=== PATIENT | male | born 1965 | race Caucasian/White ===

== ENCOUNTER 2019-05-06 12:47 | Observation (INO) ==
--- NOTE | 2019-05-06 14:50 | EKG Report ---
Test Performed on : 05/06/2019 1:21:55 PM Test Reason : syncope Blood Pressure : / mmHG Vent. Rate : 070 BPM Atrial Rate : 070 BPM P-R Int : 144 ms QRS Dur : 094 ms QT Int : 392 ms P-R-T Axes : 022 025 033 degrees QTc Int : 423 ms Normal sinus rhythm. Possible Left atrial enlargement Borderline ECG No previous ECGs available Unconfirmed Result
[2019-05-06 14:59] LABS: BASO# 0.04 X1000 (0.0-0.2); BASO% 0.5 % (0.0-0.8); EOS# 0.08 X1000 (0.0-0.7); EOS% 0.9 % (0.0-10.0); HEMOGLOBIN 14.6 g/dL (14.0-18.0); IMM GRAN# 0.02 X1000 (0.0-0.04); IMM GRAN% 0.2 % (0.0-0.5); LYMPH# 0.84 X1000 (1.2-3.4); LYMPH% 9.7 % (20.5-51.1); MCH 31.7 PG (27-31); MCHC 33.2 g/dL (33-37); MCV 95.7 FL (81-99); MONO# 0.94 X1000 (0.11-0.59); MONO% 10.8 % (1.7-9.3); MPV 8.6 FL (7.4-10.4); NEUT# 6.76 X1000 (1.4-6.5); NEUT% 77.9 % (42.2-75.2); PLT 230 X1000 (130-400); WBC 8.68 X1000 (4.8-10.8)
[2019-05-06 15:28] LABS: AGAP 12; ALB/GLOB RATIO 1.3; ALKALINE PHOSPHATASE 88 U/L (32-122); BUN 20 mg/dL (8-22); CALCIUM 8.9 mg/dL (8.8-10.2); CHLORIDE 100 mmol/L (98-107); CK PROFILE 62 U/L (24-204); COSMO 280; CREATININE 1.1 mg/dL (0.7-1.2); ESTIMATED GFR > 60; GLUCOSE 100 mg/dL (70-104); GOT 14 U/L (10-34); GPT 11 U/L (10-44); POTASSIUM 4.3 mmol/L (3.5-5.1); SODIUM 139 mmol/L (136-145); TCO2 27 mmol/L (25-35); TOTAL BILIRUBIN 0.54 mg/dL (0.20-1.00); TOTAL PROTEIN 7.2 g/dL (6.3-8.3)
--- NOTE | 2019-05-06 16:02 | Diag Imaging Result Doc PS360 ---
EXAM: CT HEAD W/O CONTRAST INDICATION: apnea TECHNIQUE: This exam was performed using automated exposure control, adjustment of mA or kV according to patient size, and/or use of iterative reconstruction technique. COMPARISON: None. FINDINGS: There is no definite acute infarct given the limited sensitivity of CT versus MRI. There is no discrete intracranial mass, mass effect, or intracranial hemorrhage. The surrounding soft tissues and bony structures are essentially unremarkable. IMPRESSION: No evidence of acute intracranial pathology. Electronically signed by Karthik Joe 05/06/2019 3:59 PM
--- NOTE | 2019-05-06 16:13 | Diag Imaging Result Doc PS360 ---
EXAM: CHEST-2 VIEWS INDICATION: syncope TECHNIQUE: 2 views COMPARISON: None. FINDINGS: There are a few calcified granulomata in the right mid and upper lung zone. There is linear density at the left lung base suggesting mild subsegmental atelectasis. The lungs are grossly clear, otherwise. There is no discrete pleural fluid collection or pneumothorax. The cardiomediastinal silhouette and central vasculature are grossly unremarkable. IMPRESSION: Suggestion of mild left basilar subsegmental atelectasis. No definite acute chest pathology, otherwise. Electronically signed by Karthik Joe 05/06/2019 4:11 PM
[2019-05-06] MEDS ORDERED: ZOFRAN IV PRN (17:30)
[2019-05-06] MEDS ORDERED: TYLENOL PO PRN (17:30)
--- NOTE | 2019-05-06 17:41 | PROVIDER DOCUMENTATION ---
This chart was entered by Ivelisse Anderson Scribe, acting as scribe for Helen Clark MD. HPI-General Adult - General Chief Complaint: Syncope Stated Complaint: SYNCOPE Time Seen by Provider: 05/06/19 13:27 Source: family (sister) Allergies/Adverse Reactions: Patient Allergies Allergy/AdvReac Type Severity Reaction Status Date / Time No Known Allergies Allergy Verified 10/26/12 14:53 Home Medications: Home Medication List Medication Instructions Recorded Confirmed Last Taken Type Besifloxacin HCl [Besivance] 5 ml OP 4XDAY 10/26/12 10/26/12 10/26/12 09:00 History Cyanocobalamin (Vitamin B-12) 1,000 mcg PO DAILY 10/26/12 10/26/12 10/25/12 20:00 History [B-12] Diphenhydramine [Benadryl] 25 mg PO QHS 10/26/12 10/26/12 10/25/12 19:00 History Ergocalciferol (Vitamin D2) 5,000 unit PO DAILY 10/26/12 10/26/12 10/25/12 20:00 History [Vitamin D] Levothyroxine [Synthroid] 50 microgm PO DAILY 10/26/12 10/26/12 10/25/12 20:00 History Olanzapine [Zyprexa] 2.5 mg PO QHS 10/26/12 10/26/12 10/25/12 20:00 History - History of Present Illness -Gen Adult Nature of Presenting Problems: 54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 Pt has Down Syndrome and sister is at bedside and reports pt was eating lunch, started burping a lot, slumped over on table, tongue turned blue and she gave Heimlech and pt aroused. Sister denies cough, gagging, vomiting or loss of urine for pt. Pt is A&Ox3 upon exam. Onset/Duration: reports: just prior to arrival Timing: reports: resolved prior to arrival Context/Activities at Onset: reports: eating Modifying Factors: improves with: nothing Associated Symptoms: reports: syncope Similar Symptoms Previously?: No Recently seen or treated by another doctor?: No Review of Systems - Adult - REVIEW OF SYSTEMS - ADULT ROS:: ROS per family (sister) Constitutional: reports: see HPI. denies: chills, fever, fatique Eyes: reports: no symptoms reported Ears, Nose, Mouth & Throat: reports: no symptoms reported Cardiovascular: reports: no symptoms reported Respiratory: reports: see HPI. denies: cough Gastrointestinal: reports: no symptoms reported Genitourinary: reports: no symptoms reported Musculoskeletal: reports: no symptoms reported Integumentary: reports: no symptoms reported Neurological: reports: see HPI, syncope Psychiatric: reports: no symptoms reported Endocrine: reports: no symptoms reported Hematologic/Lymphatic: reports: no symptoms reported Allergic/Immunologic: reports: no symptoms reported All Other Systems: Reviewed and Negative Past History - Adult - PAST MEDICAL HISTORY-ADULT Review of Records: reports: Nursing Assessment Review, Medications Reviewed, Social history reviewed & non-contributory. Major Childhood Illnesses: reports: denies history Cardiovascular: reports: denies history Respiratory: reports: denies history Gastrointestinal: reports: denies history Obstetrical/Gynecological: reports: denies history Genitourinary: reports: denies history Musculoskeletal: reports: denies history Neurological: reports: denies history Endocrine/Immune: reports: denies history Other Conditions: reports: denies history - IMMUNIZATION STATUS Childhood Immunizations: See Nurse Assessment Flu Vaccine: See Nurse Assessment - FAMILY HISTORY Family History: reviewed, not pertinent - SOCIAL HISTORY Smoking: denies Physical Exam-General - PHYSICAL EXAM-ADULT Initial Vital Signs Reviewed: Yes - CONSTITUTIONAL General Appearance: appears well, alert, no apparent distress. negative: anxi ous, combative - EYES Eyes: PERRL/EOMI, pink conjunctivae - HEAD, EARS, NOSE, MOUTH & THROAT HENMT: normocephalic/atraumatic, moist mucous membranes. negative: angioedema - NECK Neck: non-tender, full range of motion, normal inspection - RESPIRATORY Respiratory: chest non-tender, lungs clear, normal breath sounds. negative: rhonchi - CARDIOVASCULAR Cardiovascular: normal peripheral pulses, regular rate, rhythm, no edema. negative: bradycardia, tachycardia - GASTROINTESTINAL (ABDOMEN) Abdominal Exam: normal bowel sounds, non tender, soft. negative: rebound - MUSCULOSKELETAL Extremity: normal range of motion, normal inspection, normal capillary refill - SKIN Integumentary: normal turgor. negative: diaphoresis, jaundice - PSYCHIATRIC Psych/Mental Status: normal mood/affect, oriented x 3. negative: anxious, dis heveled Progress - PLAN OF CARE/RESULTS Progress/Plan/Lab Results: Vital Signs - 8 hr 05/06/19 12:52 Temperature 98.1 F Pulse Rate 79 Respiratory Rate 18 Blood Pressure 96/63 O2 Sat by Pulse Oximetry 95 Orders Category Date Time Status CHEST-2 VIEWS [RAD] Stat Exams 05/06/19 14:[address] HEAD W/O CONTRAST [CT] Stat Exams 05/06/19 14:19 Ordered CBC WITH ELECTRONIC DIFF [HEME] Stat Lab 05/06/19 14:45 Results CK PROFILE [SP CHEM] Stat Lab 05/06/19 14:45 Received COMPREHENSIVE METABOLIC PANEL [CHEM] Stat Lab 05/06/19 14:45 Received TROPONIN T Stat Lab 05/06/19 14:45 Received EKG [EKG] Stat Ther 05/06/19 14:19 Draft Result Diagrams: 05/06/19 14:45 05/06/19 14:45 - EKG 1 Time of EKG reading by physician:: 13:21 EKG Read and Signed by:: Helen Clark EKG Interpretation (*Must complete 3 of following elements*): Abnormal (borderline;possible left atrial enlargement) Rate: 70 Rhythm: NSR QRS: normal ST Wave: normal - CT/MRI 1 CT Study: Head Impression: See EMR Report (IMPRESSION: No evidence of acute intracranial pathology. Electronically signed by Karthik Joe 05/06/2019 3:59 PM) - CONSULTS/PCP/HOSPITALIST Notification #1 *Consult/PCP/Hospitalist*: d/w Xiomy, admit to Dr Leach Time Discussed: 16:45 Consult Disposition: Admit Departure - Departure Date of Disposition Decision: 05/06/19 Time of Disposition Decision: 16:40 DIAGNOSIS: Syncope and collapse, Apnea for greater than 15 seconds Disposition: ADMITTED INPATIENT 09 Certified Medical Emergency: Emergent Condition: Stable - Critical Care Note This patient required my direct & personal management of CC.: No Attestation - Physician/ RJ Attestation Patient care was provided by Advanced Practice Provider:: No The physician spent face to face time with patient:: Yes Advanced Practice Provider documentation review:: Supervising physician onsite and consulted in the evaluation and care of this patient. The physician did have a face to face encounter with the patient. This chart was documented by the indicated scribe, (Ivelisse Anderson Scribe) and accurately reflects the services I performed and decisions made by me, Helen Clark MD, as attested by the provider's signature.
--- NOTE | 2019-05-06 18:27 | HISTORY AND PHYSICAL ---
PRIMARY CARE PHYSICIAN: Eliz LARSEN. CHIEF COMPLAINT: Syncopal episode while eating lunch, slumped over the table, his tongue turn blue, was given the Heimlich by his niece, and aroused but no release of any food was noted at that time. HISTORY OF PRESENTING ILLNESS: This is a 54-year-old male with Down syndrome who presents to [facility] after he had an incident while eating lunch where he began burping a lot and then slumped over the table. His tongue turn blue. He became unresponsive. His niece was at the table with him and began the Heimlich. She states that no coughing, gagging, vomiting, or release of any food was noted with the Heimlich maneuver, but he did arouse and was alert and oriented when he arrived to the emergency room. His workup was essentially negative. Vital signs were stable. He is alert and oriented and answers questions appropriately at this time, but we will admit him for observation for further evaluation and treatment. PAST MEDICAL HISTORY: Down syndrome, mongoloid, hypothyroidism, and hypoglycemia. PAST SURGICAL HISTORY: Hernia repair. FAMILY HISTORY: Reviewed and noncontributory. SOCIAL HISTORY: Currently lives with family. Denies any tobacco, alcohol, or illicit drug use. ALLERGIES: No known drug allergies. HOME MEDICATIONS: Current list will need to be obtained, reconciled, reviewed, and restarted as appropriate. Will place an order for nursing to update and confirm home medications. LABORATORY DATA: Showed a white blood cell count of 8.68, hemoglobin 14.6, hematocrit 44, platelets 230,000. Sodium 139, potassium 4.3, chloride 100, CO2 27, BUN of 20, creatinine 1.1, glucose of 100. Cardiac enzymes were negative. CT of the head showed no evidence of acute intracranial pathology. Chest x-ray showed suggestion of a mild left basilar subsegmental atelectasis but no definite acute chest pathology otherwise. REVIEW OF SYSTEMS: He denies any fever, chills, blurred vision, dizziness, chest pain, coughing, shortness of breath. Denies any abdominal pain, constipation, diarrhea, burning or hurting with urination. He does state that his throat is mildly sore. PHYSICAL EXAMINATION: VITAL SIGNS: On arrival he had a temperature of 98.1 degrees, pulse 79, respirations 18, blood pressure 96/63, currently up to 119/80, saturating 97% on room air. GENERAL: This is a 54-year-old male who is sitting up in the bed and answers questions appropriately. HENT: Normocephalic, atraumatic. Normal ENT inspection. Oropharynx and nares are clear. EYES: Pupils are equal, round, reactive to light and accommodation. Extraocular movements are intact. NECK: Normal inspection. Normal range of motion. LUNGS: Clear to auscultation bilaterally with equal lung expansion and chest wall movement. HEART: With regular rate and rhythm. No murmurs, rubs, or gallops. ABDOMEN: Soft, nontender, nondistended. Bowel sounds are present x4 quadrants. MUSCULOSKELETAL: He had 5/5 strength x4 extremities. NEUROLOGICAL: The cranial nerves 2-12 appear grossly intact. ASSESSMENT: 1. Syncope. 2. Hypothyroidism, history of. 3. Down syndrome, history of, aware. PLAN: He will be admitted to the medical unit, placed on a regular diet, telemetry. We will update and confirm home medications. We will do a carotid Doppler and an echocardiogram in the a.m. and further orders after seen by attending. Dictated by SUZIE Perez for Niles Leach MD cc: SUZIE Perez MD Natalie McCay, CRNP
[2019-05-06] MEDS ORDERED: NS 1,000 ML IV SCH (19:45)
--- NOTE | 2019-05-06 20:30 | HISTORY AND PHYSICAL ---
I have seen and examined Mr. Saenz today. The sister and brother were at the bedside at the time of the encounter. Mr. Saenz is a 54-year-old Down syndrome patient, with history of hypothyroidism, who was in a restaurant this afternoon with family members. After taking a few bites of his food, he just brushed it aside and said he did not like it. When the family members inquired if he did not want the food, he just said no. They asked him if he wanted something else; he said no. At that point, they saw that he just became pale and he was unresponsive. His head was slumping over. The family member tried to shake him and get his attention, but he would not respond verbally, but he had pulse, I understand. Initially, they thought he might have been choking, so they tried the Heimlich procedure on him, but no food came out. I understand the tongue got blue. He became remarkably pale. He did not lose any sphincter. They said the incident lasted maybe a minute or two, and then he started gaining his consciousness. He started saying yes. He started saying "mm mmm mm". He was brought into the emergency room where he was evaluated. Initially, his blood pressure seems to have been 96/63 when he was first checked. According to this family member that I spoke to on the phone, they tried checking his blood pressure with an automated machine and it would just read error, error, error. His physical exam, for the most part, is unremarkable at this point. Chest x-ray shows mild left basilar subsegmental atelectasis. A head CT scan showed no evidence of acute disease. EKG on admission showed normal sinus rhythm, normal axis, no ST-segment or T- waves abnormality. QT interval is within normal range. 1. Syncopal episode, unclear etiology. It appears that this is neurally mediated syncope. However, possible cardiac etiology also would need to be ruled out. Initial electrocardiogram and initial troponin are negative. We are going to repeat electrocardiogram in the morning and get an echocardiogram, and get Cardiology to evaluate him. The patient will also get orthostatic vitals done. Initially, his blood pressure seems to have been on the lower side, but that has improved. We will get his orthostatic vitals and go from there. 2. History of hypothyroidism. Patient is on Synthroid. We started him back. 3. Down syndrome. Noted. Please refer to the details of the History and Physical which has been dictated by the nurse practitioner in the chart. cc: Niles Leach MD MTDD
[2019-05-06] MEDS ORDERED: ZYPREXA PO SCH (21:00)
[2019-05-07] MEDS: SYNTHROID PO SCH ×2 (05:09→07:34)
--- NOTE | 2019-05-07 08:24 | EKG Report ---
Test Performed on : 05/07/2019 08:18:27 AM Test Reason : syncope Blood Pressure : / mmHG Vent. Rate : 064 BPM Atrial Rate : 064 BPM P-R Int : 148 ms QRS Dur : 092 ms QT Int : 404 ms P-R-T Axes : -06 035 034 degrees QTc Int : 416 ms Normal sinus rhythm. Possible Lateral infarct , age undetermined Abnormal ECG When compared with ECG of 06-MAY-2019 13:21, (Unconfirmed) No significant change was found Confirmed by Santiago DELGADO, P.J.M ([id number]) on 05/08/2019 7:55:58 PM
[2019-05-07] MEDS ORDERED: VITAMIN D PO SCH (09:00)
[2019-05-07] MEDS ORDERED: VITAMIN B-12 PO SCH (09:00)
[2019-05-07 16:11] VITALS: BP 121/65
--- NOTE | 2019-05-07 20:05 | ECHO REPORT ---
ORDER DATE: 05/07/2019 INDICATION: Syncope. FINDINGS: 1. The right atrium appears mildly enlarged at 4.3 cm. 2. Trace tricuspid regurgitation. RV systolic pressure of 35. 3. Normal RV size, with possible mild reduction in RV systolic function. Somewhat difficult views of the right ventricle. 4. Mild pulmonic insufficiency. 5. Normal left atrial size, dimension of 3.2 cm. 6. No mitral valve prolapse. Mild mitral regurgitation. No evidence of mitral stenosis. 7. Normal LV size, end-diastolic dimension of 4.6. Normal wall thicknesses with a posterior and interventricular septal wall thickness of 0.8 cm each. Normal LV systolic function. Estimated EF of 60% with normal wall motion. 8. The aortic valve opens well. It is trileaflet. No evidence of stenosis or insufficiency. 9. The aorta appears normal in visualized segments. 10. No pericardial effusion seen. cc: MD Cyndy Cruz CRNP
--- NOTE | 2019-05-07 20:44 | CARDIOLOGY CONSULTATION ---
DATE: 05/07/2019 CONSULTATION REQUESTED BY: Hospitalist service. THE REASON FOR CONSULTATION: A question of syncope. HISTORY: Mr. Saenz is a 54-year-old, male who suffers from Down syndrome. He was brought to the emergency room by emergency medical service yesterday at about 2 p.m. after he suffered an episode of loss of consciousness as he was sitting at the table, associated with a choking sensation, question of real choking with food. Family administered the Heimlich maneuver, but he became unresponsive and eventually after that he regained consciousness. He is really nonverbal and he basically has not had any further complaints since he will go to the emergency room. His brother is at the bedside and he states that this has never happened before. He normally follows with Dr. Marylin Henry/SUZIE Rodarte in [place]. He has been generally enjoying good health for most part. PAST MEDICAL HISTORY: Besides the diagnosis of Down syndrome, he has hypothyroidism and history of esophageal stricture. He has had esophageal dilatation in the past. PAST SURGICAL HISTORY: Hernia repair. SOCIAL HISTORY: He lives at home with family. He is not a smoker or drinker. He is nonverbal. FAMILY HISTORY: Noncontributory. HOME MEDICATIONS: Included cyanocobalamin, vitamin B12, vitamin D2, levothyroxine, and Zyprexa 2.5 mg at bedtime. He does not have allergies. REVIEW OF SYSTEMS: Basically, they have been no changes in his health as far as the family can tell. His father at the age of 95. Mother at the age of 87. There was no heart disease in the family. There are 3 siblings, 2 older brothers. They are basically healthy. PHYSICAL EXAMINATION: Vital signs: Blood pressure 99/65, temperature 97.7 degrees, pulse 61, respirations 18. General: The patient is awake, alert, oriented, in no distress. HEENT: Unremarkable. There are no orthostatic changes in blood pressure. His HEENT, other than the usual features of Down syndrome, is unremarkable. Chest: Clear to auscultation and percussion. Heart: Sounds are regular rhythmic. No gallop or murmur. Abdomen: Nontender. Extremities: Show good pulses. No peripheral edema. Neurological: Nonfocal. Moves 4 extremities. The patient is very pleasant and allows examination without difficulty. BLOOD WORK: Sodium 139, potassium 4.3, BUN 20, creatinine 1.1. Troponin less than 0.010. ProBNP 81 pg/mL. Cholesterol panel: Total cholesterol 161, LDL 99, HDL 58, triglycerides 52. IMAGING: His chest x-ray from yesterday showed suggestion of mild left basilar subsegmental atelectasis. His 12 lead EKG from yesterday at 1:21 p.m. is basically unremarkable and so is the EKG done this morning at 8:13 in the morning does not show anything particularly remarkable. A head CT showed no evidence of intracranial pathology. A 2D echocardiogram has already been done today. It shows normal LV function. No evidence of any significant valvular abnormality. IMPRESSION: 1. Patient who suffered a brief episode of loss of consciousness, question of cardiac syncope vasovagally mediated (patient possibly choked with food) versus seizure. 2. Patient with Down syndrome. No congenital cardiac disease. 3. History of esophageal stricture in the past. 4. Hypothyroidism. RECOMMENDATION: At this time, I would suggest to get a neurology opinion and from my viewpoint, the patient may be discharged. There is no evidence of organic heart disease on him. Upon discharge it may be a good idea to refer the patient to follow up with his exerciser horse to make sure that he does not have any organic recurrent esophageal stricture. Thank you for opportunity to participate in his evaluation. cc: Luke Snowden MD [facility]
--- NOTE | 2019-05-07 21:20 | CONSULTATION ---
DATE OF CONSULTATION: 05/07/2019 REASON FOR CONSULT: Syncope versus seizure. HISTORY OF PRESENT ILLNESS: This is a 54-year-old male with Down syndrome and hypothyroidism. He was admitted yesterday after an event raising the question of syncope versus seizure. History is from the patient's attentive niece, who was at the bedside. Yesterday, he was sitting at the table eating food with his family. He took some bites and then pushed his food away and did not want it. Very shortly thereafter, he became pale and began to slump forward. The niece caught him and pushed him back up, but he continued to be poorly responsive. His tongue turned blue. His eyes seemed to be closed. He was not verbally responding. They tried the Heimlich maneuver, thinking perhaps he was choking, and although no food came out, he did apparently become more responsive. The event lasted a few minutes and he began to respond more readily. There was not loss of bowel or bladder control, no shaking. They were able to move him into the wheelchair and get him into the car to bring him for evaluation. Of note, they attempted to use the home blood pressure automated machine, and it would only read error each time they attempted to take his blood pressure. Initial blood pressure recorded here was 96/63. His blood sugar was checked and was okay. Niece reports an event in the past of syncope that was related to hypoglycemia. He has not complained of anything outright, although his speech and communication are limited. PAST MEDICAL HISTORY: 1. Down syndrome. 2. Hypothyroidism. 3. Hypoglycemia. 4. Hernia repair. FAMILY HISTORY: No strokes or seizures. SOCIAL HISTORY: He lives with his brother. His niece, who is at the bedside, takes care of him during the week. No tobacco, alcohol, or illicits. ALLERGIES: No known drug allergies listed. CURRENT MEDICATIONS: Reviewed in the chart, and include Synthroid, Zyprexa 2.5 p.o. at bedtime. REVIEW OF SYSTEMS: Balance of 12 conducted and otherwise negative except for that detailed in the HPI. He does point to his throat, possibly indicating some discomfort there. Niece says he does that often. PHYSICAL EXAMINATION: Vital signs are afebrile, blood pressure 105/62, initial was 96/63, pulse 60, respirations 16, 98% on room air. Mr. Saenz sitting up in the bed, feeding himself lunch. He is awake and alert. He follows simple commands. He is reasonably attentive. He is cooperative. He answers some questions appropriately. Pupils are equal, round, and reactive to bright light. Gaze is conjugate. Extraocular movements appear to be full. Face appears symmetric with equal activation. Palate elevates symmetrically. Tongue is midline. He can hear. Tone appears equal in the limbs. There is no obvious asymmetry with regard to power in the limbs. Reflexes are absent at the ankles, 1+ at the knees and wrists bilaterally. No clonus. Plantar response appears to be downgoing. He is able to perform [id number] bilaterally and that seems symmetric. He is seen to feed himself and to drink without much difficulty. DIAGNOSTICS: Head CT noncontrast: No acute findings. Normal white count and chemistry panel. ASSESSMENT AND PLAN: Favor syncope over seizure. The etiology is uncertain. However, based on the history of staring events in the distant past, will go ahead and order a routine EEG to evaluate for increased propensity to seizure. I agree with telemetry monitoring and further workup per primary team. Thank you for this consultation. cc: Brionna Harris MD
--- NOTE | 2019-05-07 22:04 | Carotid Study ---
DATE: 05/07/2019 REFERRING PRACTITIONER: SUZIE Perez. READING PHYSICIAN: Brandon Wood MD. SHAREPOINT DEVELOPER: Froy. INDICATION: Syncope and TIA. FINDINGS: There were no atherosclerotic plaques seen in either carotid system. There is intervertebral flow bilaterally. There is some mild elevation of velocity in the right proximal internal carotid artery, but without any turbulent flow or associated plaque. Percent stenosis should be considered 0-30% bilaterally. INTERPRETATION: Unremarkable carotid imaging study. cc: MD Cyndy Owens CRNP
--- NOTE | 2019-05-08 04:53 | EEG REPORT ---
DATE: 05/07/2019 DATE OF SERVICE: 05/07/2019 REFERRING PHYSICIAN: Brionna Harris MD CHEMICAL INSPECTOR: Emily Angeles. BACKGROUND INFORMATION/TECHNIQUE: This is a digitally recorded routine EEG with video. HISTORY: A 54-year-old male patient with Down syndrome with history of recent syncope versus seizure. EEG is ordered to detect evidence of seizures. Medications include Zyprexa. EEG FINDINGS: A well-sustained posterior dominant alpha rhythm is not seen. The background at maximal alertness consists primarily of mixed alpha and beta range frequencies with rare theta intermixed. No definite persistent focal slowing. No epileptiform discharges. No seizures. Hyperventilation was not performed. Photic stimulation does not alter the record. The patient is mostly drowsy, and enters into stage II sleep with qualitatively normal sleep architecture. The EKG demonstrates regular RR intervals. IMPRESSION AND CLINICAL CORRELATION: Borderline abnormal routine EEG due to mild diffuse slowing suggestive of mild nonspecific encephalopathy versus drowsiness. No epileptiform discharges or seizures seen on the current study. This does not rule out an underlying seizure disorder. Clinical correlation is recommended. cc: Brionna Harris MD
--- NOTE | 2019-05-11 10:47 | DISCHARGE SUMMARY ---
ADMISSION DATE: 05/06/2019 DISCHARGE DATE: 05/07/2019 DISCHARGE DIAGNOSES: 1. Syncope. 2. Hypothyroidism. 3. Down syndrome. CONSULTATION: 1. Cardiology. 2. Neurology. HOSPITAL COURSE: Briefly patient was admitted on the for syncope where he slumped over in the table. He had a carotid Doppler which was negative. He had an echocardiogram which was normal. EF is 60% , otherwise unremarkable. He had an EEG per Dr. Harris, which showed diffuse slowing but no epileptiform activity. Dr. Johnson" evaluated him, felt based on his EKGs in his workup, everything was really unremarkable. There was no evidence of organic heart disease and he recommend to follow up with GI for a recurrent esophageal stricture, which I think he had follow- up set up before. Dr. Harris did not feel this was primary neurological though this may have been a vasovagal event or something to that effect. In any case patient family preferred him to go home versus staying for GI evaluation because he had Down syndrome, had a lot of behavioral issues. I would recommend a 30 day loop monitor. DISCHARGE MEDICATIONS: Zyprexa 2.5 daily, vitamin B12 500 daily, Synthroid 50 daily, vitamin D2 5000 units daily, Prilosec 40 daily. TIME SPENT: 32 minute discharge. cc: MD Eliz Ortiz
== END 2019-05-07 18:06 | disposition home or self-care (01) ==
LOC: 4N 12:47 → ED 12:47 → SUATTDRO 17:06
PROVIDERS: ATTEND Internal Medicine